=== PATIENT | female | born 1940 | race Caucasian/White ===

== ENCOUNTER 2020-01-03 20:54 | Observation (INO) | payer MEDICARE, OTHER ==
[~2020-01-03] VITALS: Ht 157.5 cm; Wt 81.0 kg
[2020-01-03] MEDS ORDERED: fentaNYL INJECTION 100 MCG/2 ML AMP ONE (21:08)
[2020-01-03] MEDS ORDERED: fentaNYL INJECTION 100 MCG/2 ML AMP IVP ONE ×3 (21:15→23:30)
--- NOTE | 2020-01-03 21:23 | ED Fall/Injury ---
General Chief Complaint: Trauma-Non Activation Stated Complaint: FALL Nursing Triage Note: Pt to [facility] via [facility] with left arm pain after falling down 6 stairs. Pt reports LOC, denies any head/neck/back pain on arrival. EMS reports obvious deformity to left arm on arrival to scene. PT has a lac to left eyebrow. Pt is A&O x 4. C-Collar in place. Source: patient, EMS Exam Limitations: clinical condition (MARLA SPENCER MD) History of Present Illness Date Seen by Provider: Jan 03, 2020 Time Seen by Provider: 20:56 Initial Comments This 79-year-old woman is presenting via EMS from her cousin's home where she fell down 6 stairs. She is alert and oriented at this time but had positive loss of consciousness. There is obvious injury to the left wrist or forearm which is vacuum splinted by EMS. There is also a laceration to the left temporal region and blood around her lips. She denies pain in any other area. She is from out of town and visiting her family. EMS applied a c-collar. Location Injury Occurred: Residence (MARLA SPENCER MD) Allergies and Home Medications Allergies Coded Allergies: No Known Drug Allergies (Unverified , 01/03/20) Home Medications Cephalexin 500 Mg Capsule, 500 MG PO QID Prescribed by: BAYRON MENDEZ on 01/03/20 2235 Hydrocodone/Acetaminophen 1 Each Tablet, 1 EACH PO Q4-6HR PRN for PAIN-MODERATE Prescribed by: BAYRON MENDEZ on 01/03/20 2250 Patient Home Medication List Home Medication List Reviewed: Yes (MARLA SPENCER MD) Review of Systems Review of Systems Constitutional: no symptoms reported Eyes: No Symptoms Reported Ears, Nose, Mouth, Throat: see HPI Respiratory: no symptoms reported Cardiovascular: no symptoms reported Gastrointestinal: no symptoms reported Genitourinary: no symptoms reported : No Musculoskeletal: see HPI Skin: see HPI Psychiatric/Neurological: See HPI (MARLA SPENCER MD) Past Ibeohag-Gvfack-Abjzuy Hx Past Med/Social Hx: Reviewed Nursing Past Med/Soc Hx (MARLA SPENCER MD) Patient Social History Alcohol Use: Denies Use Recreational Drug Use: No Smoking Status: Never a Smoker 2nd Hand Smoke Exposure: No Recent Foreign Travel: No Contact w/Someone Who Travel: No Recent Infectious Disease Expo: No Recent Hopitalizations: No (MARLA SPENCER MD) Seasonal Allergies Seasonal Allergies: No (MARLA SPENCER MD) Past Medical History Surgeries: Yes Hysterectomy, Tonsillectomy Respiratory: No Cardiac: Yes High Cholesterol, Hypertension Neurological: No Genitourinary: No Gastrointestinal: No Musculoskeletal: No Endocrine: No HEENT: No Cancer: No Psychosocial: No Integumentary: No Blood Disorders: No (MARLA SPENCER MD) Physical Exam Vital Signs Vital Signs - First Documented 01/03/20 20:58 Temp 36.5 Pulse 82 Resp 19 B/P (MAP) 170/100 (123) Pulse Ox 100 O2 Delivery Room Air (BAYRON MENDEZ APRN) Vital Signs Capillary Refill : Less Than 3 Seconds (MARLA SPENCER MD) Height, Weight, BMI Height: '" Weight: lbs. oz. kg; 30.00 BMI Method: General Appearance: WD/WN, no apparent distress HEENT: PERRL/EOMI, other (blood around the teeth and lips with no apparent active bleeding in the mouth. Bruising and small laceration at the left temporal region.) Neck: other (in c-collar) Cardiovascular: regular rate, rhythm, no edema, no murmur Respiratory: lungs clear, normal breath sounds, no respiratory distress, no accessory muscle use Gastrointestinal: normal bowel sounds, non tender, soft Extremities: no pedal edema, other (significant pain and tenderness to the left wrist which is in a vacuum splint applied by EMS. 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 Ack. Understanding Agreement on procedure with pt: Yes Breath Sounds per Auscultation: Clear Heart Sounds per Auscultation: Regular Airway Exam: Mouth opens >2 fingers, Neck Full Range of Motion Sedation Adminstration Time: 22:35 (see nursing documentation for times) Total Time spent in CS 15 minutes She was given 5 mg of IV etomidate which nicely sedated her in combination with the total of 100 g of fentanyl that she has had up to this point. Reduction of the fracture was achieved,, forearm was splinted in a sugar tong splint (BAYRON MENDEZ APRN) Wound Location: Face Wound Length (cm): 2 Wound's Depth, Shape: linear Wound Explored: clean Anesthesia: 1% Lidocaine Suture: Prolene Suture Size: 5-0 Number of Sutures: 3 Layer Closure?: 1 Number Deep Layer Sutures: 0 (BAYRON MENDEZ APRN) Splinting and Joint Reduction : Pre-Proc Neuro Vasc Exam: normal Post-Proc Neuro Vasc Exam: normal Progress Fracture was reduced by Bayron Mendez NP under light sedation with etomidate. Postreduction views showed significant improvement and displacement. Hand-Made Type: fiberglass Splint Application: Short Arm (MARLA SPENCER MD) Progress/Results/Core Measures Results/Orders Lab Results Laboratory Tests Test 01/03/20 22:04 01/03/20 22:05 Range/Units White Blood Count 13.9 H 4.3-11.0 10^3/uL Red Blood Count 3.86 L 4.35-5.85 10^6/uL Hemoglobin 12.0 11.5-16.0 G/DL Hematocrit 38 35-52 % Mean Corpuscular Volume 98 80-99 FL Mean Corpuscular Hemoglobin 31 25-34 PG Mean Corpuscular Hemoglobin Concent 32 32-36 G/DL Red Cell Distribution Width 13.0 10.0-14.5 % Platelet Count 227 130-400 10^3/uL Mean Platelet Volume 9.7 7.4-10.4 FL Neutrophils (%) (Auto) 82 H 42-75 % Lymphocytes (%) (Auto) 11 L 12-44 % Monocytes (%) (Auto) 5 0-12 % Eosinophils (%) (Auto) 1 0-10 % Basophils (%) (Auto) 0 0-10 % Neutrophils # (Auto) 11.5 H 1.8-7.8 X 10^3 Lymphocytes # (Auto) 1.5 1.0-4.0 X 10^3 Monocytes # (Auto) 0.7 0.0-1.0 X 10^3 Eosinophils # (Auto) 0.2 0.0-0.3 10^3/uL Basophils # (Auto) 0.0 0.0-0.1 10^3/uL Sodium Level 141 135-145 MMOL/L Potassium Level 2.8 L 3.6-5.0 MMOL/L Chloride Level 105 98-107 MMOL/L Carbon Dioxide Level 21 21-32 MMOL/L Anion Gap 15 H 5-14 MMOL/L Blood Urea Nitrogen 19 H 7-18 MG/DL Creatinine 0.82 0.60-1.30 MG/DL Estimat Glomerular Filtration Rate > 60 BUN/Creatinine Ratio 23 Glucose Level 148 H 70-105 MG/DL Calcium Level 9.4 8.5-10.1 MG/DL Corrected Calcium 9.2 8.5-10.1 MG/DL Total Bilirubin 0.3 0.1-1.0 MG/DL Aspartate Amino Transf (AST/SGOT) 27 5-34 U/L Alanine Aminotransferase (ALT/SGPT) 18 0-55 U/L Alkaline Phosphatase 69 40-136 U/L Total Protein 7.4 6.4-8.2 GM/DL Albumin 4.2 3.2-4.5 GM/DL Urine Color YELLOW Urine Clarity CLEAR Urine pH 7.0 5-9 Urine Specific [place] 1.020 1.016-1.022 Urine Protein NEGATIVE NEGATIVE Urine Glucose (UA) NEGATIVE NEGATIVE Urine Ketones TRACE H NEGATIVE Urine Nitrite NEGATIVE NEGATIVE Urine Bilirubin NEGATIVE NEGATIVE Urine Urobilinogen 0.2 < = 1.0 MG/DL Urine Leukocyte Esterase NEGATIVE NEGATIVE Urine RBC (Auto) TRACE-L NEGATIVE Urine RBC RARE /HPF Urine WBC NONE /HPF Urine Squamous Epithelial Cells RARE /HPF Urine Crystals NONE /LPF Urine Bacteria NEGATIVE /HPF Urine Casts NONE /LPF Urine Mucus NEGATIVE /LPF Urine Culture Indicated NO (BAYRON MENDEZ APRN) My Orders Orders - BAYRON MENDEZ APRN Wrist, Left, 2 Views (01/03/20 22:31) Etomidate Injection (Amidate Injection) (01/03/20 22:45) Lidocaine 1% Inj 20 Ml (Xylocaine 1% Inj (01/03/20 22:45) (BAYRON MENDEZ APRN) Medications Given in ED Current Medications Medications Dose Ordered Sig/Melanie Route Start Time Stop Time Status Last Admin Dose Admin Diphtheria/ Tetanus/Acell Pertussis 0.5 ml ONCE ONCE IM 01/03/20 21:30 01/03/20 21:31 DC 01/03/20 21:54 0.5 ML Etomidate 5 mg ONCE ONCE IV 01/03/20 22:45 01/03/20 22:46 DC 01/03/20 22:20 5 MG Fentanyl Citrate 50 mcg ONCE ONCE IVP 01/03/20 21:15 01/03/20 21:16 DC 01/03/20 21:12 50 MCG Fentanyl Citrate 50 mcg ONCE ONCE IVP 01/03/20 21:45 01/03/20 21:46 DC 01/03/20 21:54 50 MCG Lidocaine HCl 5 ml ONCE ONCE INJ 01/03/20 22:45 01/03/20 22:46 DC 01/03/20 22:17 5 ML (BAYRON MENDEZ APRN) Vital Signs/I&O 01/03/20 20:58 Temp 36.5 Pulse 82 Resp 19 B/P (MAP) 170/100 (123) Pulse Ox 100 O2 Delivery Room Air (BAYRON MENDEZ APRN) Blood Pressure Mean: 123 Progress Progress Note #1: Time: 21:22 Progress Note Patient was seen and examined upon arrival. C-collar remained in place. We left the splint on the left wrist. Labs, x-ray and CT were ordered. Fentanyl was given for pain. Progress Note #2: Progress Note Left ulnar and radial fractures were reduced under light sedation by Bayron Mendez, JEREL. Potassium replacement was initiated with 10 mEq of IV potassium. Patient was admitted for observation overnight. Fentanyl was used for pain control. (MARLA SPENCER MD) Diagnostic Imaging Diagonstic Imaging: CT Plain Films/CT/US/NM/MRI: facial bones, c-spine, head Comments CT head, face and c-spine viewed by me and report reviewed. See report below: NAME: IV[facility] REC#: [id number] PT STATUS: REG ER : 1940 PHYSICIAN: MARLA SPENCER MD ADMIT DATE: 01/03/20/ER Draft Date of Exam:01/03/20 CT HEAD/FACE/CERVICAL WO PROCEDURE: CT head, face, and cervical spine without contrast. TECHNIQUE: Multiple contiguous axial images were obtained through the head, neck, and facial bones without the use of intravenous contrast. Sagittal and coronal reformations through the cervical spine and facial bones were also performed. Auto Exposure Controls were utilized during the CT exam to meet ALARA standards for radiation dose reduction. INDICATION: Fall. Trauma to the head. COMPARISON: None CT HEAD: The ventricles and cortical sulci are diffusely prominent, compatible with age-related volume loss. There are confluent areas of abnormal, low attenuation in the periventricular white matter. This is consistent with small vessel ischemic changes; age-indeterminate. There is no prior study available for comparison. There is no midline shift or mass-effect. No acute intra-axial hemorrhage is seen. There are no abnormal areas of increased or decreased density to suggest acute hemorrhage or edema. No extra-axial masses or collections are present. The bony calvarium is intact. CT FACIAL BONES: There is moderate left-sided periorbital soft tissue hematoma and emphysema. No underlying acute osseous abnormality of the facial bones is seen. Zygomatic arches are intact, bilaterally. Bilateral medial and lateral pterygoid plates are intact, as well. There is no acute fracture or dislocation of the mandible. There is no fracture of the alveolar ridge of the maxilla. Nasal bones are intact. There is mild leftward deviation of the anterior nasal septum. This however appears to be on a congenital or developmental basis. Nasal septum is otherwise intact. There is also loree bullosa of the bilateral middle turbinates, right greater than left. Evaluation of the paranasal sinuses show minimal mucosal thickening of the left sphenoid sinus. Otherwise, paranasal sinuses are clear and well-aerated. No abnormal air-fluid levels are seen. There is no acute fracture of the paranasal sinuses. There is no fracture of the orbits. Globes are symmetric. No unexpected radiopaque foreign bodies are seen. CT CERVICAL SPINE: Static alignment of the cervical spine is maintained. There is no significant anteroretrolisthesis. There is no evidence of jumped facets. Vertebral body heights are maintained. There is no acute fracture. No bony fragments are seen within the spinal canal. Mild multilevel degenerative changes are noted and consistent with mild multilevel intervertebral disc height loss and multilevel facet arthropathy, right greater than left. Pre and paravertebral soft tissue structures are unremarkable. Note is made of calcified carotid atherosclerosis. Included portions of the lung apices show no additional acute abnormalities. IMPRESSION: 1. No acute intracranial abnormality. No CT evidence of mass, acute infarct or intracranial hemorrhage. 2. Small vessel ischemic changes in the periventricular and subcortical white matter; likely chronic. 3. Moderate left periorbital soft tissue hematoma with soft tissue emphysema, but no evidence of acute fracture or dislocation of the facial bones. 4. No acute fracture or dislocation of the cervical spine. Dictated on workstation # [id number] Dict: 01/03/202143 Trans: 01/03/202155 [facility] [id number] Interpreted by: BRIANNE WASSERMAN MD Diagonstic Imaging: Xray Plain Films/CT/US/NM/MRI: forearm Comments Left forearm x-rays reveal distal radial and ulnar fractures with significant displacement. Viewed by me. Report not yet available. (MARLA SPENCER MD) Departure Communication (Admissions) Time/Spoke to Admitting Phy: 23:15 Dr. Mckay Fenton at 22:53 Dr. Duffy at 22:53 (MARLA SPENCER MD) 2200-I did review the images and discussed the case with Dr. Duffy from orthopedics. There is a very small 2-3 mm puncture wound to the volar surface of the wrist with bleeding. I discussed with him that this may represent an open fracture, however he doesn't feel it needs to be taken to the OR for washout, recommends that I cleaned it appears best as I can, reduce it, splinted. He would recommend oral antibiotics. She is here visiting from [place], plans to return to [place] within the next week where she states she will follow up with orthopedics at. (BAYRON MENDEZ APRN) Impression Primary Impression: Hypokalemia Additional Impressions: Fall down stairs Qualified Codes: W10.8XXA - Fall (on) (from) other stairs and steps, initial encounter Left forearm fracture Qualified Codes: S52.92XA - Unspecified fracture of left forearm, initial encounter for closed fracture Laceration of face Qualified Codes: S01.81XA - Laceration without foreign body of other part of head, initial encounter Concussion with brief LOC Disposition: 01 HOME, SELF-CARE Condition: Improved Admissions Decision to Admit Reason: Admit from ER (General) Decision to Admit/Date: Jan 03, 2020 Time/Decision to Admit Time: 23:10 (MARLA SPENCER MD) Departure-Patient Inst. Decision time for Depature: 22:48 (BAYRON MENDEZ APRN) Patient Instructions: Wrist Fracture (DC) Add. Discharge Instructions: All discharge instructions reviewed with patient and/or family. Voiced understanding. Scripts Hydrocodone/Acetaminophen (Lorcet 5-325 mg Tablet) 1 Each Tablet 1 EACH PO Q4-6HR PRN for PAIN-MODERATE MDD 10 for 7 Days, #14 TAB Prov: BAYRON MENDEZ APRN 01/03/20 Cephalexin (Keflex) 500 Mg Capsule 500 MG PO QID, #28 CAP Prov: BAYRON MENDEZ APRN 01/03/20 MARLA SPENCER MD Jan 03, 2020 21:23 BAYRON MENDEZ APRN Jan 03, 2020 22:37
[2020-01-03] MEDS ORDERED: TETANUS,DIPTH,PERTUSS P/F (BOOSTRIX) 0.5 ML VIAL IM ONE (21:30)
--- NOTE | 2020-01-03 21:57 | Diagnostic Imaging Report ---
PROCEDURE: CT head, face, and cervical spine without contrast. TECHNIQUE: Multiple contiguous axial images were obtained through the head, neck, and facial bones without the use of intravenous contrast. Sagittal and coronal reformations through the cervical spine and facial bones were also performed. Auto Exposure Controls were utilized during the CT exam to meet ALARA standards for radiation dose reduction. INDICATION: Fall. Trauma to the head. COMPARISON: None CT HEAD: The ventricles and cortical sulci are diffusely prominent, compatible with age-related volume loss. There are confluent areas of abnormal, low attenuation in the periventricular white matter. This is consistent with small vessel ischemic changes; age-indeterminate. There is no prior study available for comparison. There is no midline shift or mass-effect. No acute intra-axial hemorrhage is seen. There are no abnormal areas of increased or decreased density to suggest acute hemorrhage or edema. No extra-axial masses or collections are present. The bony calvarium is intact. CT FACIAL BONES: There is moderate left-sided periorbital soft tissue hematoma and emphysema. No underlying acute osseous abnormality of the facial bones is seen. Zygomatic arches are intact, bilaterally. Bilateral medial and lateral pterygoid plates are intact, as well. There is no acute fracture or dislocation of the mandible. There is no fracture of the alveolar ridge of the maxilla. Nasal bones are intact. There is mild leftward deviation of the anterior nasal septum. This however appears to be on a congenital or developmental basis. Nasal septum is otherwise intact. There is also loree bullosa of the bilateral middle turbinates, right greater than left. Evaluation of the paranasal sinuses show minimal mucosal thickening of the left sphenoid sinus. Otherwise, paranasal sinuses are clear and well-aerated. No abnormal air-fluid levels are seen. There is no acute fracture of the paranasal sinuses. There is no fracture of the orbits. Globes are symmetric. No unexpected radiopaque foreign bodies are seen. CT CERVICAL SPINE: Static alignment of the cervical spine is maintained. There is no significant anteroretrolisthesis. There is no evidence of jumped facets. Vertebral body heights are maintained. There is no acute fracture. No bony fragments are seen within the spinal canal. Mild multilevel degenerative changes are noted and consistent with mild multilevel intervertebral disc height loss and multilevel facet arthropathy, right greater than left. Pre and paravertebral soft tissue structures are unremarkable. Note is made of calcified carotid atherosclerosis. Included portions of the lung apices show no additional acute abnormalities. IMPRESSION: 1. No acute intracranial abnormality. No CT evidence of mass, acute infarct or intracranial hemorrhage. 2. Small vessel ischemic changes in the periventricular and subcortical white matter; likely chronic. 3. Moderate left periorbital soft tissue hematoma with soft tissue emphysema, but no evidence of acute fracture or dislocation of the facial bones. 4. No acute fracture or dislocation of the cervical spine. Dictated by: Dictated on workstation # [id number]
[2020-01-03] MEDS ORDERED: ETOMIDATE IV SOLN 20 MG/10 ML VIAL ONE (22:01)
[2020-01-03] MEDS ORDERED: LIDOCAINE 1% INJ 20 ML 20 ML VIAL ONE (22:01)
[2020-01-03] MEDS ORDERED: NS IV 1000 ML 1,000 ML ONE (22:02)
[2020-01-03 22:10] LABS: BASOPHILS % (AUTO) 0 % (0-10); EOSINOPHILS # (AUTO) 0.2 10^3/uL (0.0-0.3); EOSINOPHILS % (AUTO) 1 % (0-10); HEMATOCRIT 38 % (35-52); LYMPHOCYTES # (AUTO) 1.5 X 10^3 (1.0-4.0); LYMPHOCYTES % (AUTO) 11 % (12-44); MEAN CORPUSCULAR HEMOGLOBIN 31 PG (25-34); MEAN CORPUSCULAR HGB CONC 32 G/DL (32-36); MEAN CORPUSCULAR VOLUME 98 FL (80-99); MEAN PLATELET VOLUME 9.7 FL (7.4-10.4); MONOCYTES # (AUTO) 0.7 X 10^3 (0.0-1.0); MONOCYTES % (AUTO) 5 % (0-12); NEUTROPHILS # (AUTO) 11.5 X 10^3 (1.8-7.8); NEUTROPHILS % (AUTO) 82 % (42-75); PLATELET COUNT 227 10^3/uL (130-400); WHITE BLOOD COUNT 13.9 10^3/uL (4.3-11.0)
[2020-01-03 22:19] LABS: BILIRUBIN,URINE NEGATIVE (NEGATIVE); CLARITY,URINE CLEAR; COLOR,URINE YELLOW; GLUCOSE, URINE (UA) NEGATIVE (NEGATIVE); KETONES,URINE TRACE (NEGATIVE); LEUKOCYTE ESTERASE ,URINE NEGATIVE (NEGATIVE); NITRITE,URINE NEGATIVE (NEGATIVE); PROTEIN,URINE NEGATIVE (NEGATIVE)
[2020-01-03 22:24] LABS: BACTERIA,URINE NEGATIVE /HPF; RBC,URINE RARE /HPF; SQUAMOUS EPITHELIAL CELL,UR RARE /HPF
[2020-01-03 22:30] LABS: ALANINE AMINOTRANSFERASE 18 U/L (0-55); ALBUMIN 4.2 GM/DL (3.2-4.5); ALKALINE PHOSPHATASE 69 U/L (40-136); BILIRUBIN,TOTAL 0.3 MG/DL (0.1-1.0); BUN/CREATININE RATIO 23; CALCIUM 9.4 MG/DL (8.5-10.1); CARBON DIOXIDE 21 MMOL/L (21-32); CHLORIDE 105 MMOL/L (98-107); CREATININE SERUM 0.82 MG/DL (0.60-1.30); GFR ESTIMATED > 60; GLUCOSE 148 MG/DL (70-105); POTASSIUM 2.8 MMOL/L (3.6-5.0); SODIUM 141 MMOL/L (135-145); TOTAL PROTEIN 7.4 GM/DL (6.4-8.2)
[2020-01-03] MEDS ORDERED: CEPH-507 PO (22:35)
[2020-01-03] MEDS ORDERED: LIDOCAINE 1% INJ 20 ML 20 ML VIAL INJ ONE (22:45)
[2020-01-03] MEDS ORDERED: ETOMIDATE IV SOLN 20 MG/10 ML VIAL IV ONE (22:45)
[2020-01-03] MEDS ORDERED: HYDR-3870 PO (22:50)
[2020-01-03] MEDS ORDERED: NS IV 1000 ML 1,000 ML IV SCH (22:52)
[2020-01-03] MEDS ORDERED: cefTRIAXone FOR IV USE 1,000 MG in WATER (STERILE) FOR INJECTION 10 ML IV ONE (23:00)
[2020-01-03] MEDS ORDERED: POTASSIUM CL 10MEQ/50ML IVPB 50 ML IV ONE (23:00)
--- OUTSIDE RECORDS SUMMARY | 2020-01-03 23:39 | XMS REPORT | Continuity of Care Document ---
Demographics Preferred Language Unknown Marital Status Unknown Jewish Affiliation Unknown Race Unknown Ethnic Group Unknown Author Organization Unknown Address Unknown Phone Unavailable Allergies There is no data. Medications There is no data. Problems There is no data. Procedures There is no data. Results Test Result Range Complete blood count (CBC) with automate d white blood cell (WBC) differential - 01/03/20 22:04 Blood leukocytes automated count (number/volume) 13.9 10*3/uL 4.3-11.0 Blood erythrocytes automated count (number/volume) 3.86 10*6/uL 4.35-5.85 Venous blood hemoglobin measurement (mass/volume) 12.0 g/dL 11.5-16.0 Blood hematocrit (volume fraction) 38 % 35-52 Automated erythrocyte mean corpuscular volume 98 [ foz_us] 80-99 Automated erythrocyte mean corpuscular h emoglobin (mass per erythrocyte) 31 pg 25-34 Automated erythrocyte mean corpuscular h emoglobin concentration measurement (mass/volume) 32 g/dL 32-36 Automated erythrocyte distribution width ratio 13. 0 % 10.0- 14.5 Automated blood platelet count (count/volume) 227 10*3/uL 130-400 Automated blood platelet mean volume measurement 9.7 [foz_us] 7.4-10.4 Automated blood neutrophils/100 leukocytes 82 % 42-75 Automated blood lymphocytes/100 leukocytes 11 % 12-44 Blood monocytes/100 leukocytes 5 % 0-12 Automated blood eosinophils/100 leukocytes 1 % 0-10 Automated blood basophils/100 leukocytes 0 % 0-10 Blood neutrophils automated count (number/volume) 11.5 10*3 1.8-7.8 Blood lymphocytes automated count (number/volume) 1.5 10*3 1.0-4.0 Blood monocytes automated count (number/volume) 0. 7 10*3 0.0-1.0 Automated eosinophil count 0.2 10*3/uL 0 .0-0.3 Automated blood basophil count (count/volume) 0.0 10*3/uL 0.0-0.1 Comprehensive metabolic panel - 01/03/20 22:04 Serum or plasma sodium measurement (moles/volume) 141 mmol/L 135-145 Serum or plasma potassium measurement (moles/volume) 2.8 mmol/L 3.6-5.0 Serum or plasma chloride measurement (moles/volume) 105 mmol/L 98-107 Carbon dioxide 21 mmol/L 21-32 Serum or plasma anion gap determination (moles/volume) 15 mmol/L 5-14 Serum or plasma urea nitrogen measurement (mass/volume ) 19 mg/dL 7-18 Serum or plasma creatinine measurement (mass/volume) 0.82 mg/dL 0.60-1.30 Serum or plasma urea nitrogen/creatinine mass ratio 23 NRG Serum or plasma creatinine measurement w ith calculation of estimated glomerular filtration rate > NRG Serum or plasma glucose measurement (mass/volume) 148 mg/dL 70-105 Serum or plasma calcium measurement (mass/volume) 9.4 mg/dL 8.5-10.1 Serum or plasma total bilirubin measurement (mass/volu me) 0.3 mg/dL 0.1-1.0 Serum or plasma alkaline phosphatase pavel surement (enzymatic activity/volume) 69 U/L 40-136 Serum or plasma aspartate aminotransfera se measurement (enzymatic activity/volume) 27 U/L 5-34 Serum or plasma alanine aminotransferase measurement (enzymatic activity/volume) 18 U/L 0-55 Serum or plasma protein measurement (mass/volume) 7.4 g/dL 6.4-8.2 Serum or plasma albumin measurement (mass/volume) 4.2 g/dL 3.2-4.5 CALCIUM CORRECTED 9.2 mg/dL 8.5-10.1 Complete urinalysis with reflex to cultu re - 01/03/20 22:05 Urine color determination YELLOW NRG Urine clarity determination CLEAR NR G Urine pH measurement by test strip 7.0 5-9 Specific gravity of urine by test strip 1.020 1.016-1.022 Urine protein assay by test strip, semi-quantitative NEGATIVE NEGATIVE Urine glucose detection by automated test strip NE GATIVE NEGATIVE Erythrocytes detection in urine sediment by light micr oscopy TRACE-L NEGATIVE Urine ketones detection by automated test strip TR MARLEY NEGATIVE Urine nitrite detection by test strip NEGATIVE NEGATIVE Urine total bilirubin detection by test strip NEGA TIVE NEGATIVE Urine urobilinogen measurement by automated test strip (mass/volume) 0.2 mg/dL < = 1.0 Urine leukocyte esterase detection by dipstick NEG ATIVE NEGATIVE Automated urine sediment erythrocyte cou nt by microscopy (number/high power field) RARE NRG Automated urine sediment leukocyte count by microscopy (number/high power field) NONE NRG Bacteria detection in urine sediment by light microsco py NEGATIVE NRG Squamous epithelial cells detection in u rine sediment by light microscopy RARE NRG Crystals detection in urine sediment by light microsco py NONE NRG Casts detection in urine sediment by light microscopy NONE NRG Mucus detection in urine sediment by light microscopy NEGATIVE NRG Complete urinalysis with reflex to culture NO NRG Encounters ACCT No. Visit Date/Time Discharge Status Pt. Type Provider Facility Loc./Unit Complaint [id number] 01/03/2020 22:11:00 Document Registration
--- OUTSIDE RECORDS SUMMARY | 2020-01-04 01:00 | XMS REPORT | Continuity of Care Document ---
Demographics Preferred Language Unknown Marital Status Unknown Adventism Affiliation Unknown Race Unknown Ethnic Group Unknown [...] Status Pt. Type Provider Facility Loc./Unit Complaint [id number] 01/03/2020 22:11:00 Document Registration
[2020-01-04 01:02] VITALS: BP 166/79
[2020-01-04] MEDS ORDERED: fentaNYL INJECTION 100 MCG/2 ML AMP IVP PRN (01:45)
[2020-01-04] MEDS: POTASSIUM CL 10MEQ/50ML IVPB 50 ML IV SCH ×4 (01:57→05:19)
[2020-01-04] MEDS: NS IV 1000 ML 1,000 ML IV SCH ×2 (01:57→12:13)
[2020-01-04] MEDS: HYDROcodone/APAP 5 MG/325 MG (LORTAB) TAB PO PRN ×3 (02:15→17:54)
[2020-01-04] MEDS: CEPHALEXIN 250 MG (KEFLEX) CAP PO SCH ×4 (03:42→20:32)
[2020-01-04 04:59] VITALS: BP 139/87
[2020-01-04 05:22] LABS: BASOPHILS % (AUTO) 0 % (0-10); EOSINOPHILS % (AUTO) 0 % (0-10); HEMATOCRIT 35 % (35-52); HEMOGLOBIN 11.3 G/DL (11.5-16.0); LYMPHOCYTES # (AUTO) 1.2 X 10^3 (1.0-4.0); LYMPHOCYTES % (AUTO) 9 % (12-44); MEAN CORPUSCULAR HEMOGLOBIN 31 PG (25-34); MEAN CORPUSCULAR HGB CONC 32 G/DL (32-36); MEAN CORPUSCULAR VOLUME 97 FL (80-99); MEAN PLATELET VOLUME 10.7 FL (7.4-10.4); MONOCYTES % (AUTO) 8 % (0-12); NEUTROPHILS # (AUTO) 10.9 X 10^3 (1.8-7.8); NEUTROPHILS % (AUTO) 83 % (42-75); PLATELET COUNT 118 10^3/uL (130-400); RED CELL DISTRIBUTION WIDTH 13.2 % (10.0-14.5); WHITE BLOOD COUNT 13.1 10^3/uL (4.3-11.0)
[2020-01-04 05:41] LABS: BUN/CREATININE RATIO 21; CALCIUM 8.4 MG/DL (8.5-10.1); CARBON DIOXIDE 19 MMOL/L (21-32); CHLORIDE 105 MMOL/L (98-107); CREATININE SERUM 0.76 MG/DL (0.60-1.30); GFR ESTIMATED > 60; GLUCOSE 209 MG/DL (70-105); POTASSIUM 3.6 MMOL/L (3.6-5.0); SODIUM 138 MMOL/L (135-145)
[2020-01-04 08:00] VITALS: BP 165/84
--- NOTE | 2020-01-04 08:15 | Diagnostic Imaging Report ---
INDICATION: Traumatic deformity. There is an impacted comminuted and dorsally angulated as well as dorsally displaced distal radial Colles' fracture with the fracture of the distal ulnar head. The relationship of the most distal ulnar fragment with the radius is maintained however the remaining ulna distally shows anterior displacement and angulation. No carpal fracture. The mid shafts of the radius and ulna as well as the elbow grossly unremarkable on this exam. IMPRESSION: The distal radial and ulnar displaced fractures as described. Dictated by: Dictated on workstation # [id number]
--- NOTE | 2020-01-04 08:16 | Diagnostic Imaging Report ---
INDICATION: Status post reduction of distal radial fracture. COMPARISON: Left forearm radiograph's of earlier same day. TECHNIQUE: 2 views of the left wrist were obtained. FINDINGS: A fiberglass sugar tong splint has been replaced after closed reduction of distal radial fracture. There has been improved alignment as the distal radial fracture fragments now located upon the radial diaphysis and is no longer displaced posteriorly. No dorsal angulation of the radial articular surface. Mildly comminuted fractures of the distal ulna is also an improved alignment. IMPRESSION: Improved alignment status post closed reduction and splinting of distal radial and ulnar fracture. Dictated by: Dictated on workstation # [id number]
[2020-01-04] MEDS ORDERED: ACET-2267 PO (09:14)
[2020-01-04] MEDS ORDERED: MTP25TSR PO (09:14)
[2020-01-04] MEDS ORDERED: ROSU20TA32 PO (09:14)
[2020-01-04] MEDS ORDERED: LOSA1TAB20 PO (09:14)
[2020-01-04] MEDS ORDERED: MULT-1067 PO (09:14)
[2020-01-04] MEDS ORDERED: CALC-654 PO (09:14)
[2020-01-04] MEDS ORDERED: IBUP-1780 PO (09:14)
[2020-01-04] MEDS ORDERED: FLUT9.9S NSEACH (09:14)
--- NOTE | 2020-01-04 09:16 | NUR ---
SPOKE WITH THE PT AND CALLED [facility] ORDER TO COMPLETE THE MED REC THE FOLLOWING MEDICATIONS WERE FILLED ON 12-20-2019 FOR #90/90DS: LOSARTAN/HCTZ 50/12.5MG METOPROLOL SUCC 25MG ROSUVASTATIN 20MG 11-29-2019 IBUPROFEN 800MG #180/90- USES PRN OTC: CALCIUM W/ VIT D MTV TYLENOL FLONASE Addendum: 01/04/20 at 0923 by DALTON ACKERMAN CPhT PT CAME THRU THE ED AND IT SHOWS Abhijeet ELMORE HAD PRINTED RXS FOR KEFLEX 500MG #28 AND LORCET 5/325MG #14- I DID NOT INCLUDE THESE ON THE MED REC SINCE THE PT HAS NOT TAKEN THEM AND SINCE THEY WERE NOT SENT OUT TO A PHARMACY VIA E-SCRIBE.
[2020-01-04] MEDS ORDERED: CEPH250C PO (10:12)
[2020-01-04] MEDS ORDERED: HYDR-83 PO (10:12)
--- NOTE | 2020-01-04 10:26 | Short Stay Summary-Hospitalist ---
History of Present Illness HPI/Chief Complaint Pt is an 79yoF with a PMH of HTN who presented to the ER after a fall. She states that she was standing at the top of her cousin's stairs and the next thing she remembers is being in the ambulance. Her cousin is at bedside and states that she was outside when the pt fell but she came and found her a the bottom of 4 stairs with her arm under her body. The cousin states she was unconscious for roughly 2 minutes. EMS was called and brought her here. She had an obvious deformity of her arm and imaging showed displaced radial and ulnar deformities. This was reduced in the ER. She also had a small laceration above her left eye. This was sutured in the ER as well. She was admitted for observation. This morning she states she is still having quite a bit of pain. Source: patient Date Seen 01/04/20 Time Seen by a Provider: 10:26 Attending Physician William Bashir MD PCP No,Local Physician Referring Physician Date of Admission Jan 04, 2020 at 00:00 Home Medications & Allergies Home Medications Reviewed patient Home Medication Reconciliation performed by pharmacy medication reconciliations iv technician and/or nursing. Patients Allergies have been reviewed. Allergies Allergies Coded Allergies No Known Drug Allergies (Unverified01/03/20) Past Zctokyu-Ogxxze-Wsuipx Hx Past Med/Social Hx: Reviewed Nursing Past Med/Soc Hx Patient Social History Alcohol Use: Denies Use Recreational Drug Use: No Smoking Status: Never a Smoker 2nd Hand Smoke Exposure: No Recent Foreign Travel: No Contact w/other who traveled: No Recent Hopitalizations: No Recent Infectious Disease Expo: No Seasonal Allergies Seasonal Allergies: No Past Medical History Surgeries: Hysterectomy, Tonsillectomy Cardiac: High Cholesterol, Hypertension History of Blood Disorders: No Review of Systems Constitutional: No chills, No fever EENTM: no symptoms reported Respiratory: no symptoms reported Cardiovascular: No chest pain, No palpitations Gastrointestinal: no symptoms reported Genitourinary: no symptoms reported Musculoskeletal: see HPI, joint pain, muscle pain Skin: no symptoms reported Psychiatric/Neurological: No Symptoms Reported Physical Exam Physical Exam Vital Signs Vital Signs - First Documented 01/03/20 01/03/20 20:58 22:00 Temp 36.5 Pulse 82 Resp 19 B/P (MAP) 170/100 (123) Pulse Ox 100 O2 Delivery Room Air O2 Flow Rate 2.00 Capillary Refill : Less Than 3 Seconds Height, Weight, BMI Height: '" Weight: lbs. oz. kg; 32.65 BMI Method: General Appearance: No Apparent Distress, WD/WN HEENT: Other (large ecchymosis surrounding left eye with sutured laceration) Respiratory: Lungs Clear, No Accessory Muscle Use, No Respiratory Distress Cardiovascular: Regular Rate, Rhythm, No Murmur Gastrointestinal: Normal Bowel Sounds, Non Tender, Soft Back: Normal Inspection, No Vertebral Tenderness Extremity: No Calf Tenderness, No Pedal Edema, Other (left arm in cast) Neurologic/Psychiatric: Alert, Oriented x3, Normal Mood/Affect Skin: Normal Color, Warm/Dry Results Results/Procedures Labs Laboratory Tests 01/03/20 22:04 01/04/20 04:55 Patient resulted labs reviewed. Imaging: Reviewed Imaging Report Imaging [facility] [place], [place] NAME: IVORY WARE MED REC#: [id number] PT STATUS: ADM Julien : 1940 PHYSICIAN: MARLA SPENCER MD ADMIT DATE: 01/04/20 Draft Date of Exam:01/03/20 FOREARM, LEFT, 2 VIEWS INDICATION: Traumatic deformity. There is an impacted comminuted and dorsally angulated as well as dorsally displaced distal radial Colles' fracture with the fracture of the distal ulnar head. The relationship of the most distal ulnar fragment with the radius is maintained however the remaining ulna distally shows anterior displacement and angulation. No carpal fracture. The mid shafts of the radius and ulna as well as the elbow grossly unremarkable on this exam. IMPRESSION: The distal radial and ulnar displaced fractures as described. [facility] [place] [place] NAME: JEANIEIVORY Wes MED REC#: [id number] PT STATUS: ADM Julien : 1940 PHYSICIAN: BAYRON ELMORE APRN ADMIT DATE: 01/04/20 Signed Date of Exam:01/03/20 WRIST, LEFT, 2 VIEWS INDICATION: Status post reduction of distal radial fracture. COMPARISON: Left forearm radiograph's of earlier same day. TECHNIQUE: 2 views of the left wrist were obtained. FINDINGS: A fiberglass sugar tong splint has been replaced after closed reduction of distal radial fracture. There has been improved alignment as the distal radial fracture fragments now located upon the radial diaphysis and is no longer displaced posteriorly. No dorsal angulation of the radial articular surface. Mildly comminuted fractures of the distal ulna is also an improved alignment. IMPRESSION: Improved alignment status post closed reduction and splinting of distal radial and ulnar fracture. Short Stay Diagnosis Discharge Diagnosis-Short Stay Admission Diagnosis Displaced ulnar and radial fracture Final Discharge Diagnosis Displaced ulnar and radial fracture Conclusion Plan Displaced ulnar and radial fracture s/p reduction in the ER Ortho consulted, appreciate recs Continue pain regimen may be able to discharge home this evening if pain under control Continue Keflex Hypokalemia Replaced overnight HTN Continue home meds Clinical Quality Measures DVT/VTE Risk/Contraindication: Risk Factor Score Per Nursin RFS Level Per Nursing on Admit: 4+=Very High JIMBO HOOVER MD Jan 04, 2020 10:26
--- NOTE | 2020-01-04 10:44 | Consultation - Ortho ---
Consult - Ortho Subjective Date of Exam 01/04/20 Chief Complaint Fracture left wrist HPI/Events since last exam Mrs. Mari is an 79-year-old white female who fell down some steps last evening injuring her left wrist. She was seen in the emergency room and x-rays showed a displaced fracture of the left distal radius and ulna. There was a 2-3 mm opening or wound volarly that was clean. No bone exposed. Minimal bleeding. I was called by the emergency room provider and he discussed the case with me. I recommended irrigation and cleansing of the wound and then close reduction and splinting. I also recommended antibiotics. She was given Rocephin IV and then Keflex 500 mg 3 times a day orally. She is right-hand dominant. She is visiting family from [place]. She is driven up here with 3 other ladies in a plan on returning this weekend. She lived just north of [facility]. 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 Medical, Surgical History Reviewed and no additions or changes Social History Reviewed and no additions or changes Family History Reviewed and no additions or changes Review of Systems Reviewed and no additions or changes Allergies: Coded Allergies: No Known Drug Allergies (Unverified , 01/03/20) Home Meds Active Scripts Cephalexin (Cephalexin) 250 Mg Capsule, 500 MG PO TID, #42 CAP Prov:JOHN CREWS MD 01/04/20 Hydrocodone/Acetaminophen (Hydrocodone-Acetamin 5-325 mg) 1 Each Tablet, 1 TAB PO Q4HR PRN for PAIN-MODERATE (5-7), #40 TAB Prov:JOHN CREWS MD 01/04/20 Reported Medications Fluticasone Propionate (Flonase Allergy Relief) 9.9 Ml [place].susp, 1 SPRAY NSEACH DAILY PRN for CONGESTION, EACH 1 SPRAY EACH NARE DAILY 01/04/20 Acetaminophen (Tylenol Extra Strength) 500 Mg Tablet, 1000 MG PO Q8H PRN for PAIN-MILD (1-4), TAB 01/04/20 Multivitamin/Iron/Folic Acid (Centrum Adults Tablet) 1 Each Tablet, 1 EACH PO DAILY, TAB 01/04/20 Calcium Carbonate/Vitamin D3 (Calcium 500 + D Tablet) 1 Each Tablet, 1 EACH PO DAILY, TAB 01/04/20 Ibuprofen (Ibuprofen) 800 Mg Tablet, 800 MG PO BID PRN for PAIN-MILD (1-4), TAB 01/04/20 Metoprolol Succinate (Metoprolol Succinate) 25 Mg Tab.er.24h, 25 MG PO HS, TAB 01/04/20 Rosuvastatin Calcium (Rosuvastatin Calcium) 20 Mg Tablet, 20 MG PO HS, TAB 01/04/20 Losartan/Hydrochlorothiazide (Losartan-Hctz 50-12.5 mg Tab) 1 Each Tablet, 1 EACH PO DAILY, TAB 01/04/20 Objective Exam Constitutional: [] HEENT: [] Neck: [] Cardiovascular: [] Respiratory: [] Gastrointestinal: [] Genitourinary: [] Skin: [] Back/Spine: [] Extremities: [The left upper extremity is evaluated. She is in a sugar tong splint. She can move her fingers and thumb and has normal sensation with good capillary refill. She has no pain in the upper arm or shoulder. The splint is in good condition.] Neurologic: [] Psychiatric: [] Hematologic/lymphatic/immunologic: [] Vital Signs Vital Signs Date Time Temp Pulse Resp B/P (MAP) Pulse Ox O2 Delivery O2 Flow Rate FiO2 01/04/20 08:00 36.0 86 18 165/84 (111) 95 Room Air 01/04/20 04:59 36.5 98 20 139/87 (104) 95 Room Air 01/04/20 01:02 36.2 103 20 166/79 94 Room Air 01/04/20 00:45 95 Room Air 2.00 01/04/20 00:38 36.5 82 19 146/72 (123) 96 Nasal Cannula 01/03/20 22:30 36.4 65 19 170/101 97 Nasal Cannula 2.00 01/03/20 22:15 36.4 83 17 174/98 99 Nasal Cannula 2.00 01/03/20 22:00 36.5 76 18 171/106 98 Nasal Cannula 2.00 01/03/20 20:58 36.5 82 19 170/100 (123) 100 Room Air I & O 01/04/20 06:59 Intake Total 150 ml Balance 150 ml Lab Results Laboratory Tests 01/03/20 22:04: White Blood Count 13.9H, Red Blood Count 3.86L, Hemoglobin 12.0, Hematocrit 38, Mean Corpuscular Volume 98, Mean Corpuscular Hemoglobin 31, Mean Corpuscular Hemoglobin Concent 32, Red Cell Distribution Width 13.0, Platelet Count 227, Mean Platelet Volume 9.7, Neutrophils (%) (Auto) 82H, Lymphocytes (%) (Auto) 11L , Monocytes (%) (Auto) 5, Eosinophils (%) (Auto) 1, Basophils (%) (Auto) 0, Neutrophils # (Auto) 11.5H, Lymphocytes # (Auto) 1.5, Monocytes # (Auto) 0.7, Eosinophils # (Auto) 0.2, Basophils # (Auto) 0.0, Sodium Level 141, Potassium Level 2.8L, Chloride Level 105, Carbon Dioxide Level 21, Anion Gap 15H, Blood Urea Nitrogen 19H, Creatinine 0.82, Estimat Glomerular Filtration Rate > 60, BUN/Creatinine Ratio 23, Glucose Level 148H, Calcium Level 9.4, Corrected Calcium 9.2, Total Bilirubin 0.3, Aspartate Amino Transf (AST/SGOT) 27, Alanine Aminotransferase (ALT/SGPT) 18, Alkaline Phosphatase 69, Total Protein 7.4, Albumin 4.2 01/03/20 22:05: Urine Color YELLOW, Urine Clarity CLEAR, Urine pH 7.0, Urine Specific [place] 1.020, Urine Protein NEGATIVE, Urine Glucose (UA) NEGATIVE, Urine Ketones TRACEH , Urine Nitrite NEGATIVE, Urine Bilirubin NEGATIVE, Urine Urobilinogen 0.2, Urine Leukocyte Esterase NEGATIVE, Urine RBC (Auto) TRACE-L, Urine RBC RARE, Urine WBC NONE, Urine Squamous Epithelial Cells RARE, Urine Crystals NONE, Urine Bacteria NEGATIVE, Urine Casts NONE, Urine Mucus NEGATIVE, Urine Culture Indicated NO 01/04/20 04:55: White Blood Count 13.1H, Red Blood Count 3.60L, Hemoglobin 11.3L, Hematocrit 35, Mean Corpuscular Volume 97, Mean Corpuscular Hemoglobin 31, Mean Corpuscular Hemoglobin Concent 32, Red Cell Distribution Width 13.2, Platelet Count 118L, Mean Platelet Volume 10.7H, Neutrophils (%) (Auto) 83H, Lymphocytes (%) (Auto) 9L, Monocytes (%) (Auto) 8, Eosinophils (%) (Auto) 0, Basophils (%) (Auto) 0, Neutrophils # (Auto) 10.9H, Lymphocytes # (Auto) 1.2, Monocytes # (Auto) 1.0, Eosinophils # (Auto) 0.0, Basophils # (Auto) 0.0, Sodium Level 138, Potassium Level 3.6, Chloride Level 105, Carbon Dioxide Level 19L, Anion Gap 14, Blood Urea Nitrogen 16, Creatinine 0.76, Estimat Glomerular Filtration Rate > 60, BUN/Creatinine Ratio 21, Glucose Level 209H, Calcium Level 8.4L Imaging I reviewed her prereduction x-rays which shows a displaced fracture of the distal radius and ulna which is dorsally displaced. Postreduction x-ray shows excellent alignment of the radius with minimal displacement of the ulna. The radius is out to length and has approximately 10 of volar tilt. No angulation is noted. Assessment and Plan Assessment Doing well post reduction fracture left wrist Problem List Reviewed and no additions or changes Plan The above was discussed with the patient and her daughter. I talked to him about the fracture of the left distal radius and ulna. And stand she had a small wound that was well irrigated and cleansed in the emergency room. She has a reduction that is acceptable for now. They understand that the fractures could move over the next few days to few weeks. I can't predict whether this will move and if it does move it probably will shorten her could angulate. If it doesn't it's no longer acceptable she may require surgical treatment with pins and/or plating. She did have antibiotics in the emergency room and is presently on oral antibiotics. I talked to him about chance of infection and they understand that with a small open wound there is a chance of infection but again this was treated with irrigation and antibiotics in the emergency room. I did talk to him about surgery and they wanted to hold on surgery if it's not necessary at this point. Again I explained it may continue and good alignment in the heel and then she'll need rehabilitation to regain her motion and strength. If it does move again she may require surgical treatment. Again she wants to return home this weekend. I see no problem with her driving back. Just make sure she keeps the wrist and hand elevated and move the fingers is much as possible. She'll need to ice the wrist as well and I recommended g etting some gel [place] freeze these implemented cooler and just continue ice throughout her trip back. She'll then follow-up with an orthopedist in the [place] area. She was given a prescription for hydrocodone 5/325 one every 4 hours when necessary pain number 40 and Keflex 500 mg 3 times a day number 42. Also we will download her x-rays to a disc that she can take with her. Final Diagonsis Displaced fracture left distal radius and ulna status post close reduction and splinting Level of the visit: Level 3 JOHN CREWS MD Jan 04, 2020 10:44
[2020-01-04 12:00] VITALS: BP 156/78
[2020-01-04] MEDS ORDERED: ACETAMINOPHEN 500 MG TAB (TYLENOL) PO PRN (12:00)
[2020-01-04] MEDS ORDERED: IBUPROFEN 800 MG (MOTRIN) TAB PO PRN (12:00)
[2020-01-04] MEDS ORDERED: FLUTICASONE NASAL SPRAY (FLONASE) 16 GM BTL NS PRN (12:06)
--- NOTE | 2020-01-04 12:46 | Consultation - Surgery ---
History of Present Illness History of Present Illness Patient Consulted On(chelo/time) 01/04/20 12:40 Time Seen by Provider: 12:17 History of Present Illness Surgery asked to consult regarding Trauma, admitted for other than Trauma (hypokalemia). HPI per ED: Pt to 7 via [facility] with left arm pain after falling down 6 stairs. Pt reports LOC, denies any head/neck/back pain on arrival. EMS reports obvious deformity to left arm on arrival to scene. PT has a lac to left eyebrow. Pt is A&O x 4. C-Collar in place. Source: patient, EMS This 79-year-old woman is presenting via EMS from her cousin's home where she fell down 6 stairs. She is alert and oriented at this time but had positive loss of consciousness. There is obvious injury to the left wrist or forearm which is vacuum splinted by EMS. There is also a laceration to the left temporal region and blood around her lips. She denies pain in any other area. She is from out of town and visiting her family. EMS applied a c-collar. Location Injury Occurred: Residence When I spoke to pt this afternoon, her main complaint was arm pain and weakness; "I think I may wanna stay another day". Denies headache or abdominal pain. Allergies and Home Medications Allergies Coded Allergies: No Known Drug Allergies (Unverified , 01/03/20) Home Medications Acetaminophen 500 Mg Tablet, 1,000 MG PO Q8H PRN for PAIN-MILD (1-4), (Reported) Calcium Carbonate/Vitamin D3 1 Each Tablet, 1 EACH PO DAILY, (Reported) Cephalexin 250 Mg Capsule, 500 MG PO TID Prescribed by: JOHN CREWS MD on 01/04/20 1012 Fluticasone Propionate 9.9 Ml [place].susp, 1 SPRAY NSEACH DAILY PRN for CONGESTION, (Reported) 1 SPRAY EACH NARE DAILY Hydrocodone/Acetaminophen 1 Each Tablet, 1 TAB PO Q4HR PRN for PAIN-MODERATE (5- 7) Prescribed by: JOHN CREWS MD on 01/04/20 1012 Ibuprofen 800 Mg Tablet, 800 MG PO BID PRN for PAIN-MILD (1-4), (Reported) Losartan/Hydrochlorothiazide 1 Each Tablet, 1 EACH PO DAILY, (Reported) Metoprolol Succinate 25 Mg Tab.er.24h, 25 MG PO HS, (Reported) Multivitamin/Iron/Folic Acid 1 Each Tablet, 1 EACH PO DAILY, (Reported) Rosuvastatin Calcium 20 Mg Tablet, 20 MG PO HS, (Reported) Patient Home Medication List Home Medication List Reviewed: Yes Past Uchzzcv-Udfydj-Vaagwq Hx Patient Social History Alcohol Use: Denies Use Recreational Drug Use: No Smoking Status: Never a Smoker 2nd Hand Smoke Exposure: No Recent Foreign Travel: No Contact w/Someone Who Travel: No Recent Infectious Disease Expo: No Recent Hopitalizations: No Seasonal Allergies Seasonal Allergies: No Surgeries History of Surgeries: Yes Surgeries: Hysterectomy, Tonsillectomy Respiratory History of Respiratory Disorde: No Cardiovascular History of Cardiac Disorders: Yes Cardiac Disorders: High Cholesterol, Hypertension Neurological History of Neurological Disord: No Reproductive System : No Genitourinary History of Genitourinary Disor: No Gastrointestinal History of Gastrointestinal Di: No Musculoskeletal History of Musculoskeletal Dis: No Endocrine History of Endocrine Disorders: No HEENT History of HEENT Disorders: No Cancer History of Cancer: No Psychosocial History of Psychiatric Problem: No Integumentary History of Skin or Integumenta: No Blood Transfusions History of Blood Disorders: No Family Medical History Significant Family History: Hypertension Review of Systems-General Constitutional: dizziness, malaise, weakness EENTM: eye pain; No blurred vision, No double vision, No mouth pain, No mouth swelling Respiratory: No hemoptysis, No short of breath Cardiovascular: No chest pain, No palpitations Gastrointestinal: No abdominal pain, No nausea, No vomiting Genitourinary: No dysuria, No frequency, No hematuria Musculoskeletal: joint pain, joint swelling, muscle pain, muscle stiffness, muscle cramps Skin: No change in color, No change in hair/nails; other (ecchymosis) Psychiatric/Neurological: Denies Anxiety, Denies Depressed, Denies Seizure; [place] Physical Exam-General Problems Physical Exam Vital Signs Vital Signs - First Documented 01/03/20 01/03/20 20:58 22:00 Temp 36.5 Pulse 82 Resp 19 B/P (MAP) 170/100 (123) Pulse Ox 100 O2 Delivery Room Air O2 Flow Rate 2.00 Capillary Refill : Less Than 3 SecondsLess Than 3 Seconds General Appearance: no apparent distress, thin Eyes: Bilateral Eye PERRL, Bilateral Eye EOMI HEENT: pharynx normal; No scleral icterus (R), No scleral icterus (L); other (larger bruise over left eye) Respiratory: lungs clear, normal breath sounds, no respiratory distress, no accessory muscle use Cardiovascular: regular rate, rhythm, no murmur Gastrointestinal: non tender, soft, no organomegaly Back: no CVA tenderness Extremities: no pedal edema, no calf tenderness, other (left arm in a sling) Neurologic/Psychiatric: editorial manager II-XII nml as tested, alert Skin: normal color, warm/dry Lymphatic: no adenopathy (neck, axilla or groin) Data Review Labs Laboratory Tests 01/03/20 22:04: White Blood Count 13.9H, Red Blood Count 3.86L, Hemoglobin 12.0, Hematocrit 38, Mean Corpuscular Volume 98, Mean Corpuscular Hemoglobin 31, Mean Corpuscular Hemoglobin Concent 32, Red Cell Distribution Width 13.0, Platelet Count 227, Mean Platelet Volume 9.7, Neutrophils (%) (Auto) 82H, Lymphocytes (%) (Auto) 11L , Monocytes (%) (Auto) 5, Eosinophils (%) (Auto) 1, Basophils (%) (Auto) 0, Neutrophils # (Auto) 11.5H, Lymphocytes # (Auto) 1.5, Monocytes # (Auto) 0.7, Eosinophils # (Auto) 0.2, Basophils # (Auto) 0.0, Sodium Level 141, Potassium Level 2.8L, Chloride Level 105, Carbon Dioxide Level 21, Anion Gap 15H, Blood Urea Nitrogen 19H, Creatinine 0.82, Estimat Glomerular Filtration Rate > 60, BUN/Creatinine Ratio 23, Glucose Level 148H, Calcium Level 9.4, Corrected Carl cium 9.2, Total Bilirubin 0.3, Aspartate Amino Transf (AST/SGOT) 27, Alanine Aminotransferase (ALT/SGPT) 18, Alkaline Phosphatase 69, Total Protein 7.4, Albumin 4.2 01/03/20 22:05: Urine Color YELLOW, Urine Clarity CLEAR, Urine pH 7.0, Urine Specific [place] 1.020, Urine Protein NEGATIVE, Urine Glucose (UA) NEGATIVE, Urine Ketones TRACEH , Urine Nitrite NEGATIVE, Urine Bilirubin NEGATIVE, Urine Urobilinogen 0.2, Urine Leukocyte Esterase NEGATIVE, Urine RBC (Auto) TRACE-L, Urine RBC RARE, Urine WBC NONE, Urine Squamous Epithelial Cells RARE, Urine Crystals NONE, Urine Bacteria NEGATIVE, Urine Casts NONE, Urine Mucus NEGATIVE, Urine Culture Indicated NO 01/04/20 04:55: White Blood Count 13.1H, Red Blood Count 3.60L, Hemoglobin 11.3L, Hematocrit 35, Mean Corpuscular Volume 97, Mean Corpuscular Hemoglobin 31, Mean Corpuscular Hemoglobin Concent 32, Red Cell Distribution Width 13.2, Platelet Count 118L, Mean Platelet Volume 10.7H, Neutrophils (%) (Auto) 83H, Lymphocytes (%) (Auto) 9L, Monocytes (%) (Auto) 8, Eosinophils (%) (Auto) 0, Basophils (%) (Auto) 0, Neutrophils # (Auto) 10.9H, Lymphocytes # (Auto) 1.2, Monocytes # (Auto) 1.0, Eosinophils # (Auto) 0.0, Basophils # (Auto) 0.0, Sodium Level 138, Potassium Level 3.6, Chloride Level 105, Carbon Dioxide Level 19L, Anion Gap 14, Blood Urea Nitrogen 16, Creatinine 0.76, Estimat Glomerular Filtration Rate > 60, BUN/Creatinine Ratio 21, Glucose Level 209H, Calcium Level 8.4L Assessment/Plan Assessment/Plan Assessment/Plan Trauma - Fell down stairs Hypokalemia Left Ulnar Fx Plan is replace potassium, arm already reduced and in sling; will f/u outpt with Ortho. IV fluids, pain control. No acute intracranial process and pt is alert today. Pt does not need anything further from Trauma service. Clinical Quality Measures DVT/VTE Risk/Contraindication: Risk Factor Score Per Nursin RFS Level Per Nursing on Admit: 4+=Very High SOPHIE CASTRO DO Jan 04, 2020 12:46
--- NOTE | 2020-01-04 15:07 | Physical Therapy Evaluation ---
PT Evaluation-General Medical Diagnosis Admission Date Jan 04, 2020 at 00:00 Medical Diagnosis: hypokalemia/fall down stairs Onset Date: Jan 03, 2020 Therapy Diagnosis Therapy Diagnosis: debility Precautions Precautions/Isolations: Standard Precautions Weight Bear Status Right Lower Extremity: Right Weight Bearing/Tolerated Left Lower Extremity: Left Weight Bearing/Tolerated Referral Physician: Lisette Reason for Referral: Evaluation/Treatment Medical History Pertinent Medical History: HTN Current History EMS secondary fell down 6 stairs resulting in left forearm fracture and multiple contusions Reviewed History: Yes Social History Home: Single Level Current Living Status: Spouse Prior Prior Level of Function SCALE: Activities may be completed with or without assistive devices. 3-Urkyagtwen-sowkfiv completes the activity by him/herself with no assistance from a helper. 5-Set-up or Clean-up Assistance-helper sets up or cleans up; patient completes activity. [place] assists only prior to or following the activity. 4-Supervision or Touching Assistance-helper provides verbal cues and/or touching/steadying and/or contact guard assistance as patient completes activity. Assistance may be provided throughout the activity or intermittently. 3-Partial/Moderate Assistance-helper does LESS THAN HALF the effort. [place] lifts, holds or supports trunk or limbs, but provides less than half the effort. 2-Substantial/Maximal Assistance-helper does MORE THAN HALF the effort. [place] lifts or holds trunk or limbs and provides more than half the effort. 2-Pjqknpmyf-vpybzu does ALL the effort. Patient does none of the effort to complete the activity. Or, the assistance of 2 or more helpers is required for the patient to complete the activity. If activity was not attempted, code reason: 7-Patient Refused. 9-Not Applicable-not attempted and the patient did not perform the activity before the current illness, exacerbation or injury. 10-Not Attempted due to Environmental Limitations-(lack of equipment, weather restraints, etc.). 88-Not Attempted due to Medical Conditions or Safety Concerns. Bed Mobility: 6 Transfers (B,C,W/C): 6 Gait: 6 Stairs: 6 Indoor Mobility (Ambulation): Independent Stairs: Independent Prior Devices Use: None PT Evaluation-Current Subjective Patient agrees to PT. Pain Numeric Pain Scale: 3 Location: Left Location Body Site: Arm Pain Description: Acute Objective Patient Orientation: Normal For Age ROM/Strength ROM Lower Extremities bilateral LE WFL Strength Lower Extremities 4/5 grossly bilateral LE Integumentary/Posture Integumentary refer to nursing notes Bowel Incontinence: No Bladder Incontinence: No (patient toileted self independently) Posture WFL Neuromuscular (Tone, Coordination, Reflexes) grossly intact Sensory Vision: Functional Hearing: Functional Sensation Right Lower Extremit: Intact Sensation Left Lower Extremity: Intact Transfers Roll Left to Right (QC): 6 Sit to Lying (QC): 6 Lying to Sitting/Side of Bed(Q: 6 Sit to Stand (QC): 6 Chair/Kke-ac-Bvwey Xfer(QC): 6 Toilet Transfer (QC): 6 Gait Does the Patient Walk?: Yes Mode of Locomotion: Walk Anticipated Mode of Locomotion: Walk Walk 10 feet (QC): 6 Walk 50 ft with 2 Turns(QC): 6 Walk 150 ft (QC): 6 Distance: 800' Gait Assistive Device: None Comments/Gait Description safe and functional with no deviation Wheelchair Training Does the Pt Use a Wheelchair?: No Balance Sitting Static: Normal Sitting Dynamic: Normal Standing Static: Normal Standing Dynamic: Normal Assessment/Needs 79 y.o. female, is currently independent PLOF with all gross motor skills and does not require skilled therapy intervention. Thank you for this referral. Rehab Potential: Fair PT Plan Treatment/Plan Treatment Plan: Discontinue PT, goals met Treatment Duration: Jan 04, 2020 Frequency: 1 time per week Estimated Hrs Per Day: .25 hour per day Time/GCodes Time In: 1438 Time Out: 1458 Total Billed Treatment Time: 20 Total Billed Treatment 1 visit EVMod 20 min LEIDY DE LUNA PT Jan 04, 2020 15:07
[2020-01-04 16:00] VITALS: BP 179/81
[2020-01-04 20:00] VITALS: BP 164/88
[2020-01-04] MEDS ORDERED: ROSUVASTATIN 20 MG (CRESTOR) TABLET PO SCH (21:00)
[2020-01-05] VITALS: BP 148/79
[2020-01-05 04:00] VITALS: BP 158/84
[2020-01-05] MEDS: HYDROcodone/APAP 5 MG/325 MG (LORTAB) TAB PO PRN ×2 (04:39→11:43)
[2020-01-05] MEDS ORDERED: MULTIVIT W/MINERALS TAB (THERAGRAN M) PO SCH (07:00)
[2020-01-05] MEDS: CEPHALEXIN 250 MG (KEFLEX) CAP PO SCH (08:10)
[2020-01-05 08:11] VITALS: BP 133/77
[2020-01-05] MEDS ORDERED: HYDROCHLOROTHIAZIDE 12.5 MG (HCTZ) CAP PO SCH (09:00)
[2020-01-05] MEDS ORDERED: LOSARTAN 50 MG (COZAAR) TAB PO SCH (09:00)
--- NOTE | 2020-01-05 10:34 | Discharge Summary ---
Diagnosis/Chief Complaint Date of Admission Jan 04, 2020 at 00:00 Date of Discharge Discharge Date: Jan 04, 2020 Admission Diagnosis Displaced ulnar and radial fracture Primary Care No,Local Physician Discharge Summary Discharge Physical Exam Allergies: Coded Allergies: ciprofloxacin (Verified Allergy, Mild, 01/04/20) nausea/vomiting/abdominal pain Vitals & I&Os Vital Signs Date Time Temp Pulse Resp B/P (MAP) Pulse Ox O2 Delivery O2 Flow Rate FiO2 01/05/20 08:11 81 133/77 (95) 93 Room Air 01/05/20 08:00 36.6 20 01/04/20 00:45 2.00 Hospital Course Labs (last 24 hrs) Patient resulted labs reviewed. Imaging: Reviewed Imaging Report Discharge Home Medications: Active Scripts Active Cephalexin 250 Mg Capsule 500 Mg PO TID Hydrocodone-Acetamin 5-325 mg (Hydrocodone/Acetaminophen) 1 Each Tablet 1 Tab PO Q4HR PRN Reported Flonase Allergy Relief (Fluticasone Propionate) 9.9 Ml [place].susp 1 [place] NSEACH DAILY PRN 1 SPRAY EACH NARE DAILY Tylenol Extra Strength (Acetaminophen) 500 Mg Tablet 1,000 Mg PO Q8H PRN Centrum Adults Tablet (Multivitamin/Iron/Folic Acid) 1 Each Tablet 1 Each PO DAILY Calcium 500 + D Tablet (Calcium Carbonate/Vitamin D3) 1 Each Tablet 1 Each PO DAILY Ibuprofen 800 Mg Tablet 800 Mg PO BID PRN Metoprolol Succinate 25 Mg Tab.er.24h 25 Mg PO HS Rosuvastatin Calcium 20 Mg Tablet 20 Mg PO HS Losartan-Hctz 50-12.5 mg Tab (Losartan/Hydrochlorothiazide) 1 Each Tablet 1 Each PO DAILY Instructions to patient/family Please see electronic discharge instructions given to patient. Clinical Quality Measures DVT/VTE Risk/Contraindication: Risk Factor Score Per Nursin RFS Level Per Nursing on Admit: 4+=Very High JIMBO HOOVER MD Jan 05, 2020 10:34
--- NOTE | 2020-01-05 10:39 | Discharge Inst-Simple/Standard ---
Discharge Inst-Standard Discharge Medications New, Converted or Re-Newed RX: RX on Chart Patient Instructions/Follow Up Plan of Care/Instructions/FU: Please continue to take your medications as written. Please follow up with your PCP and with orthopedic surgery to follow up this hospital stay. Activity as Tolerated: Yes Discharge Diet: Cardiac Diet Return to The Hospital For: Fever, chest pain, worsening arm pain or numbness, if you feel you are getting worse. Planned Outpatient Orders/Ref. Pneu Vac Indicated: Yes JIMBO HOOVER MD Jan 05, 2020 10:39
[2020-01-05 11:48] VITALS: BP 133/77
--- OUTSIDE RECORDS SUMMARY | 2020-01-11 13:28 | XMS REPORT | Continuity of Care Document ---
Author Organization Unknown Address Unknown Phone Unavailable Allergies Active Description Code Type Severity Reaction Onset Reported/Identified Relationship to Patient Clinical Status Yes No Known Drug Allergies [id number] Drug Allergy Unknown N/A 01/03/2020 Yes ciprofloxacin [id number] Erich g Allergy Mild N/A 01/04/2020 Medications There is no data. Problems Date Dx Coded Attending Type Code Diagnosis Diagnosed By 01/05/2020 KASANDRA YANG MD Ot E78. 00 PURE HYPERCHOLESTEROLEMIA, UNSPECIFIED 01/05/2020 KASANDRA YANG MD, Ot E87. 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 1 ALLERGY STATUS TO OTHER ANTIBIOTIC AGENT 01/05/2020 KASANDRA YANG MD Ot Z90.710 ACQUIRED ABSENCE OF BOTH CERVIX AND UTER 01/05/2020 KASANDRA YANG MD Ot Z90. 89 ACQUIRED ABSENCE OF OTHER ORGANS Procedures There is no data. Results Test [...] urinalysis with reflex to culture NO NRG Complete blood count (CBC) with automate d white blood cell (WBC) differential - 01/04/20 04:55 Blood leukocytes automated count (number/volume) 13.1 10*3/uL 4.3-11.0 Blood erythrocytes automated count (number/volume) 3.60 10*6/uL 4.35-5.85 Venous blood hemoglobin measurement (mass/volume) 11.3 g/dL 11.5-16.0 Blood hematocrit (volume fraction) 35 % 35-52 Automated erythrocyte mean corpuscular volume 97 [ foz_us] 80-99 Automated erythrocyte mean corpuscular h emoglobin (mass per erythrocyte) 31 pg 25-34 Automated erythrocyte mean corpuscular h emoglobin concentration measurement (mass/volume) 32 g/dL 32-36 Automated erythrocyte distribution width ratio 13. 2 % 10.0- 14.5 Automated blood platelet count (count/volume) 118 10*3/uL 130-400 Automated blood platelet mean volume measurement 10.7 [foz_us] 7.4-10.4 Automated blood neutrophils/100 leukocytes 83 % 42-75 Automated blood lymphocytes/100 leukocytes 9 % 12-44 Blood monocytes/100 leukocytes 8 % 0-12 Automated blood eosinophils/100 leukocytes 0 % 0-10 Automated blood basophils/100 leukocytes 0 % 0-10 Blood neutrophils automated count (number/volume) 10.9 10*3 1.8-7.8 Blood lymphocytes automated count (number/volume) 1.2 10*3 1.0-4.0 Blood monocytes automated count (number/volume) 1. 0 10*3 0.0-1.0 Automated eosinophil count 0.0 10*3/uL 0 .0-0.3 Automated blood basophil count (count/volume) 0.0 10*3/uL 0.0-0.1 Whole blood basic metabolic panel - 12/19 01/07 04:55 Serum or plasma sodium measurement (moles/volume) 138 mmol/L 135-145 Serum or plasma potassium measurement (moles/volume) 3.6 mmol/L 3.6-5.0 Serum or plasma chloride measurement (moles/volume) 105 mmol/L 98-107 Carbon dioxide 19 mmol/L 21-32 Serum or plasma anion gap determination (moles/volume) 14 mmol/L 5-14 Serum or plasma urea nitrogen measurement (mass/volume ) 16 mg/dL 7-18 Serum or plasma creatinine measurement (mass/volume) 0.76 mg/dL 0.60-1.30 Serum or plasma urea nitrogen/creatinine mass ratio 21 NRG Serum or plasma creatinine measurement w ith calculation of estimated glomerular filtration rate > NRG Serum or plasma glucose measurement (mass/volume) 209 mg/dL 70-105 Serum or plasma calcium measurement (mass/volume) 8.4 mg/dL 8.5-10.1 Encounters ACCT No. Visit Date/Time Discharge Status Pt. Type Provider Facility Loc./Unit Complaint [id number] 01/04/2020 00:00:00 020 11:48:00 DIS Outpatient TREY CHEATHAM, KASANDRA Yoo [facility] 4TH HYPOKALEMIA,FALL DOWN STAIRS,FOREARM FX
== END 2020-01-05 10:40 | disposition home or self-care (01) ==
LOC: ER 20:56 → 4TH 20:57 → UNDOADMOB 01-04 → 4TH 01-04 → UNDODISOB 01-05 11:48
PROVIDERS: ADMIT Internal Medicine; ATTEND Internal Medicine
DX: S52.92XA Unspecified fracture of left forearm, initial encounter for closed fracture (principal); S52.202A Unspecified fracture of shaft of left ulna, initial encounter for closed fracture; E78.00 Pure hypercholesterolemia, unspecified; I10 Essential (primary) hypertension; E87.6 Hypokalemia; S01.81XA Laceration without foreign body of other part of head, initial encounter; Z79.891 Long term (current) use of opiate analgesic; Z79.899 Other long term (current) drug therapy; Z90.710 Acquired absence of both cervix and uterus; Z90.89 Acquired absence of other organs; Z88.1 Allergy status to other antibiotic agents; W10.8XXA Fall (on) (from) other stairs and steps, initial encounter
CPT/HCPCS: 70450; 70486; 72125; 73090; 73100; 80048; 80053; 81000; 85025 ×2; 90471; 96361; 96374; 96375; 96376; 97162; 99283; G0378; 36415; 90715